=== PATIENT | male | born 1990 | race Caucasian/White ===

== ENCOUNTER → 2017-04-05 | Outpatient (CLI) | payer BC | LOC: RAD 12:05 | DX: R10.32 Left lower quadrant pain (principal) ==

== ENCOUNTER → 2017-04-15 | Outpatient (CLI) | payer BC | LOC: RAD 07:47 | DX: K76.89 Other specified diseases of liver (principal) ==

== ENCOUNTER → 2017-08-31 | Outpatient (CLI) | payer OTHER | LOC: RAD 08:35 | DX: R10.32 Left lower quadrant pain (principal); K76.9 Liver disease, unspecified | CPT/HCPCS: Q9967 ==